=== PATIENT | male | born 1975 | race Caucasian/White ===

== ENCOUNTER 2020-04-15 12:28 | Emergency (ER) | payer MEDICAID, OTHER ==
[~2020-04-15] VITALS: Ht 167.6 cm; Wt 88.6 kg
[~2020-04-15 12:28] MED LIST: CHLO25CA10 PO; ONDA8TAB9 PO
[2020-04-15] MEDS ORDERED: TETanus/Pertussis (Acell)/Diphther VAC/PF (Tdap-Adult) 0.5ml syringe IMVAC ONE (12:45)
[2020-04-15] MEDS ORDERED: bacitracin 15gm ointment TP ONE (12:45)
[2020-04-15] MEDS ORDERED: LIDOcaine 1% W/epiNEPHrine 1:200,000 10ml vial IJ ONE (12:45)
[2020-04-15 13:52] VITALS: BP 152/109
== END 2020-04-15 13:58 | disposition home or self-care (01) ==
LOC: ER 12:28
DX: S51.812A Laceration without foreign body of left forearm, initial encounter (principal); G89.29 Other chronic pain; F41.9 Anxiety disorder, unspecified; F12.90 Cannabis use, unspecified, uncomplicated; Z20.3 Contact with and (suspected) exposure to rabies; Z98.890 Other specified postprocedural states; Z72.89 Other problems related to lifestyle; Z56.0 Unemployment, unspecified; Z79.899 Other long term (current) drug therapy; X58.XXXA Exposure to other specified factors, initial encounter; Y93.89 Activity, other specified; Y92.89 Other specified places as the place of occurrence of the external cause; Y99.8 Other external cause status
CPT/HCPCS: 12002; 90471; 90715; 99283

== ENCOUNTER 2020-09-13 08:14 | Emergency (ER) | payer MEDICAID ==
[~2020-09-13] VITALS: Ht 167.6 cm; Wt 81.8 kg
[2020-09-13 08:37] VITALS: BP 134/82
[2020-09-13] MEDS ORDERED: mupirocin 2% ointment 22GM TP ONE (09:15)
[2020-09-13] MEDS ORDERED: LIDOcaine 1% 30ml preserv. free vial IJ ONE (09:15)
[2020-09-13] MEDS ORDERED: ketorolac tromethamine 15mg/ml inj. IM ONE (09:15)
[2020-09-13] MEDS ORDERED: CEPH-585 PO (09:49)
== END 2020-09-13 10:25 | disposition home or self-care (01) ==
LOC: ER 08:15
DX: S61.211A Laceration without foreign body of left index finger without damage to nail, initial encounter (principal); G89.29 Other chronic pain; F41.9 Anxiety disorder, unspecified; F12.90 Cannabis use, unspecified, uncomplicated; Z98.890 Other specified postprocedural states; Z72.89 Other problems related to lifestyle; Z56.0 Unemployment, unspecified; Z79.2 Long term (current) use of antibiotics; Z79.899 Other long term (current) drug therapy; X58.XXXA Exposure to other specified factors, initial encounter; Y93.89 Activity, other specified; Y92.89 Other specified places as the place of occurrence of the external cause; Y99.8 Other external cause status
CPT/HCPCS: 12001; 96372; 99283; J1885